=== PATIENT | female | born 1940 | race Caucasian/White ===

== ENCOUNTER 2020-07-16 21:58 | Emergency (ER) | payer MEDICARE, OTHER ==
[~2020-07-16 21:58] MED LIST: ACTOS45 MG PO; ASPIRIN EC81 MG PO; BENZONATATE200 MG PO; COZAAR100 MG PO; DIFLUCAN150 MG PO; FERROUS SULFAT325 M2 PO; HUMULIN R100 UNIT/1 SQ; IPRAT-ALBUT 0.5-3 ML INH; K-DUR TAB 20 M20 MEQ PO; LASIX20 MG PO; LEVAQUIN750 MG PO; LEVEMIR100 UNIT/1 SQ; LOPRESSOR 50 MG50 MG PO; LOPRESSOR50 MG PO; MAG-OX 400 TAB400 MG PO; MAPAP500 M1 PO; METAFOLBIC TAB1 EACH PO; NORVASC 5 MG TAB5 MG PO; OMNICEF 300 MG300 MG PO; POTASSIUM CHLO10 MEQ PO; PRAVACHOL20 MG PO; PRAVASTATIN SOD20 MG PO; TESSALON PERLE100 MG PO; VIBRAMYCIN100 MG PO; VITAMIN B-121000 MCG PO; VITAMIN D50000 UNIT PO
[2020-07-17 00:35] LABS: HEMOGLOBIN 13.5 gm/dl (12.3-15.3); RED BLOOD COUNT 4.29 M/UL (4.00-5.10); WHITE BLOOD COUNT 8.9 K/UL (4.5-11.0)
[2020-07-17 01:00] LABS: BUN/CREATININE RATIO 15 (0-10)
== END 2020-07-17 02:57 | disposition home or self-care (01) ==
LOC: ER1 21:58
PROVIDERS: Emergency Medicine
DX: S80.02XA Contusion of left knee, initial encounter (principal); S80.01XA Contusion of right knee, initial encounter; S70.02XA Contusion of left hip, initial encounter; E11.9 Type 2 diabetes mellitus without complications; I11.9 Hypertensive heart disease without heart failure; W06.XXXA Fall from bed, initial encounter
CPT/HCPCS: 70450; 71045; 72125; 72170; 73560; 80053; 82550; 82553; 84484; 85025; 93005; 99284

== ENCOUNTER 2020-07-18 15:16 | Inpatient (IN) | payer MEDICARE, OTHER ==
[~2020-07-18] VITALS: Ht 162.6 cm; Wt 102.1 kg
[2020-07-18 16:55] LABS: HEMOGLOBIN 13.6 gm/dl (12.3-15.3); RED BLOOD COUNT 4.34 M/UL (4.00-5.10); WHITE BLOOD COUNT 8.2 K/UL (4.5-11.0)
[2020-07-19] MEDS ORDERED: BUMETANIDE1 MG PO (09:07)
[2020-07-19] MEDS ORDERED: VITAMIN D325 MCG PO (11:34)
[2020-07-19] MEDS ORDERED: NOVOLIN 70100 UNIT/1 SQ (21:48)
--- NOTE | 2020-07-22 07:02 | NUR ---
CT WAS ALERTED AT APPROXIMATELY 2300 ON 07/21/20 THAT PT HAD 20 GAUGE IV FOR PE STUDY NEEDING TO BE PERFORMED.
--- NOTE | 2020-07-23 19:19 | NUR ---
Dr. Bangura notified of patients oxygen sats 86-87% on 5L NC. New order to start patient on high flow oxygen. Respiratory therpay notified.
[2020-07-24 04:35] LABS: HEMOGLOBIN 12.3 gm/dl (12.3-15.3); WHITE BLOOD COUNT 14.3 K/UL (4.5-11.0)
[2020-07-26 03:19] LABS: RED BLOOD COUNT 3.94 M/UL (4.00-5.10); WHITE BLOOD COUNT 12.5 K/UL (4.5-11.0)
[2020-07-27 04:04] LABS: HEMOGLOBIN 13.1 gm/dl (12.3-15.3); RED BLOOD COUNT 4.23 M/UL (4.00-5.10); WHITE BLOOD COUNT 11.7 K/UL (4.5-11.0)
--- NOTE | 2020-07-29 02:01 | NUR ---
AT 2135 PATIENT FOUND ON FLOOR IN HER ROOM. SHE WAS LYING ON THE SIDE OF THE BED NEXT TO BATHROOM ON HER RIGHT SIDE. PATIENT ASSISTED BACK TO BED, VSS, PATIENT DENIES ANY PAIN. PATIENT EXAMINED AND FOUND NO INJURY OR EVEN ANY REDNESS. PATIENT ALERT AND ANSWERS MY QUESTIONS. MD TAMALE MAKER AND HS NOTIFIED.
[2020-07-29 03:30] LABS: RED BLOOD COUNT 4.21 M/UL (4.00-5.10)
[2020-07-29 03:31] LABS: WHITE BLOOD COUNT 16.7 K/UL (4.5-11.0)
--- NOTE | 2020-07-29 06:45 | NUR ---
attempted to call daughter to inform her about fall but no answer, tried twice.
[2020-07-30 03:13] LABS: HEMOGLOBIN 12.4 gm/dl (12.3-15.3); RED BLOOD COUNT 4.03 M/UL (4.00-5.10); WHITE BLOOD COUNT 14.3 K/UL (4.5-11.0)
[2020-07-31 04:55] LABS: HEMOGLOBIN 12.5 gm/dl (12.3-15.3); RED BLOOD COUNT 4.26 M/UL (4.00-5.10); WHITE BLOOD COUNT 16.8 K/UL (4.5-11.0)
[2020-07-31 05:08] LABS: BUN/CREATININE RATIO 25 (0-10)
[2020-08-01 03:02] LABS: HEMOGLOBIN 12.3 gm/dl (12.3-15.3); RED BLOOD COUNT 4.21 M/UL (4.00-5.10); WHITE BLOOD COUNT 14.8 K/UL (4.5-11.0)
[2020-08-02 05:28] LABS: HEMOGLOBIN 12.2 gm/dl (12.3-15.3); RED BLOOD COUNT 4.01 M/UL (4.00-5.10); WHITE BLOOD COUNT 11.5 K/UL (4.5-11.0)
[2020-08-02 05:43] LABS: BUN/CREATININE RATIO 23 (0-10)
[2020-08-04 04:14] LABS: HEMOGLOBIN 12.4 gm/dl (12.3-15.3); RED BLOOD COUNT 4.02 M/UL (4.00-5.10); WHITE BLOOD COUNT 9.5 K/UL (4.5-11.0)
[2020-08-04 04:44] LABS: BUN/CREATININE RATIO 18 (0-10)
[2020-08-05 05:50] LABS: RED BLOOD COUNT 4.21 M/UL (4.00-5.10); WHITE BLOOD COUNT 10.4 K/UL (4.5-11.0)
[2020-08-06 04:35] LABS: HEMOGLOBIN 11.4 gm/dl (12.3-15.3); RED BLOOD COUNT 3.69 M/UL (4.00-5.10); WHITE BLOOD COUNT 9.7 K/UL (4.5-11.0)
[2020-08-06] MEDS ORDERED: IPRAT-ALBUT 0.5-3 ML INH (12:39)
[2020-08-06] MEDS ORDERED: ACETAMINOPHEN325 MG PO (12:39)
[2020-08-06] MEDS ORDERED: BUMETANIDE1 MG PO (12:39)
[2020-08-06] MEDS ORDERED: HUMALOG 10100 UNITS/ SC (12:39)
[2020-08-06] MEDS ORDERED: POLYETHYLENE GL17 GM PO (12:39)
[2020-08-06] MEDS ORDERED: AUGMENTIN 875-1 EACH PO (12:40)
--- NOTE | 2020-08-06 14:20 | NUR ---
CASE MGMT NOTIFIED ME THAT WAS UNABLE TO GET PAPERWORK COMPLETED DUE TO UNABLE TO REACH PT'S DAUGHTER BY PHONE AND PT NOT BEING ABLE TO BE AT RECEIVING FACILITY BY 3PM, SO THEREFORE PT WILL HAVE TO STAY HERE UNTIL SUNDAY. DR DARNELL NOTIFIED PER CASE MGMT AND DISCHARGE CANCELLED.
--- NOTE | 2020-08-06 20:45 | NUR ---
Notified daughter that the patient had left to go to rehab
== END 2020-08-06 20:30 | DRG 177 ==
LOC: ER1 15:16 → M/S 18:43 → CDU 18:43 → M/S 21:08
PROVIDERS: Internal Medicine; Internal Medicine Nephrology; Physician Assistant Medical; ADMIT Internal Medicine
PROC: 3E0333Z Introduction of Anti-inflammatory into Peripheral Vein, Percutaneous Approach (ICD-10-PCS; principal; 2020-07-18)
PROC: 8E0ZXY6 Isolation (ICD-10-PCS; 2020-07-18)
PROC: XW13325 Transfusion of Convalescent Plasma (Nonautologous) into Peripheral Vein, Percutaneous Approach, New Technology Group 5 (ICD-10-PCS; 2020-07-19)
PROC: XW033E5 Introduction of Remdesivir Anti-infective into Peripheral Vein, Percutaneous Approach, New Technology Group 5 (ICD-10-PCS; 2020-07-19)
DX: U07.1 COVID-19 (principal); J96.21 Acute and chronic respiratory failure with hypoxia; J12.82 Pneumonia due to coronavirus disease 2019; J69.0 Pneumonitis due to inhalation of food and vomit; G92 Toxic encephalopathy; N17.9 Acute kidney failure, unspecified; I50.32 Chronic diastolic (congestive) heart failure; I44.2 Atrioventricular block, complete; N39.0 Urinary tract infection, site not specified; M84.477A Pathological fracture, right toe(s), initial encounter for fracture; I13.0 Hypertensive heart and chronic kidney disease with heart failure and stage 1 through stage 4 chronic kidney disease, or unspecified chronic kidney disease; T38.0X5A Adverse effect of glucocorticoids and synthetic analogues, initial encounter; N18.30 Chronic kidney disease, stage 3 unspecified; R53.81 Other malaise; M10.9 Gout, unspecified; E11.22 Type 2 diabetes mellitus with diabetic chronic kidney disease; R13.10 Dysphagia, unspecified; R33.9 Retention of urine, unspecified; F29 Unspecified psychosis not due to a substance or known physiological condition; I27.20 Pulmonary hypertension, unspecified; I49.5 Sick sinus syndrome; R41.0 Disorientation, unspecified; F03.90 Unspecified dementia, unspecified severity, without behavioral disturbance, psychotic disturbance, mood disturbance, and anxiety; E11.65 Type 2 diabetes mellitus with hyperglycemia; Z79.4 Long term (current) use of insulin; Z95.0 Presence of cardiac pacemaker; Z79.82 Long term (current) use of aspirin; Z79.01 Long term (current) use of anticoagulants; Z99.81 Dependence on supplemental oxygen; Z88.7 Allergy status to serum and vaccine
CPT/HCPCS: 36415; 36600; 70450; 71045; 71275; 72125; 72170; 73560; 73620; 80048; 80053; 81001; 82140; 82550; 82553; 82803; 82962; 83036; 83605; 83735; 84484; 85025; 85027; 85379; 86140; 86900; 86901; 86927; 87040; 87086; 92526; 92610; 93005; 94640; 94664; 94760; 96374; 97110; 97110-GP-CQ; 97116-GP-CQ; 97162; 97166; 97530; 97530-GP-CQ; 99284; 99285; J0456; J0692; J0696; J1100; J1630; J1650; J2405; J7030; P9047; Q9967; U0002

== ENCOUNTER 2021-02-02 12:06 | Inpatient (IN) | payer MEDICARE, MEDICAID ==
[~2021-02-02] VITALS: Ht 162.6 cm; Wt 83.9 kg
[~2021-02-02 12:06] MED LIST changes: +ACETAMINOPHEN325 MG PO; +AUGMENTIN 875-1 EACH PO; +BUMETANIDE1 MG PO; +HUMALOG 10100 UNITS/ SC; +NOVOLIN 70100 UNIT/1 SQ; +POLYETHYLENE GL17 GM PO; -PRAVACHOL20 MG PO; +VITAMIN D325 MCG PO
[2021-02-02 14:38] LABS: HEMOGLOBIN 14.8 gm/dl (12.3-15.3); RED BLOOD COUNT 4.86 M/UL (4.00-5.10); WHITE BLOOD COUNT 12.9 K/UL (4.5-11.0)
[2021-02-02] MEDS ORDERED: BUMETANIDE1 MG PO (16:09)
[2021-02-02] MEDS ORDERED: ONDANSETRON ODT8 MG PO (16:10)
[2021-02-02] MEDS ORDERED: DONEPEZIL HCL5 MG PO (16:10)
[2021-02-02] MEDS ORDERED: METOPROLOL TAR100 MG PO (16:10)
[2021-02-02] MEDS ORDERED: VITAMIN C500 M4 PO (16:11)
[2021-02-02] MEDS ORDERED: FUROSEMIDE20 MG PO (16:12)
[2021-02-02] MEDS ORDERED: NOVOLIN 70100 UNIT/1 SQ (16:12)
[2021-02-03 07:30] LABS: HEMOGLOBIN 13.1 gm/dl (12.3-15.3); RED BLOOD COUNT 4.45 M/UL (4.00-5.10)
[2021-02-04 06:01] LABS: HEMOGLOBIN 12.6 gm/dl (12.3-15.3); RED BLOOD COUNT 4.2 M/UL (4.00-5.10)
[2021-02-04 06:03] LABS: WHITE BLOOD COUNT 14.8 K/UL (4.5-11.0)
[2021-02-05 06:22] LABS: HEMOGLOBIN 12.1 gm/dl (12.3-15.3); RED BLOOD COUNT 4.05 M/UL (4.00-5.10); WHITE BLOOD COUNT 16.1 K/UL (4.5-11.0)
[2021-02-06 05:57] LABS: HEMOGLOBIN 12.6 gm/dl (12.3-15.3); RED BLOOD COUNT 4.24 M/UL (4.00-5.10); WHITE BLOOD COUNT 16.8 K/UL (4.5-11.0)
[2021-02-07 09:30] LABS: HEMOGLOBIN 12.6 gm/dl (12.3-15.3); RED BLOOD COUNT 4.24 M/UL (4.00-5.10); WHITE BLOOD COUNT 20.1 K/UL (4.5-11.0)
[2021-02-07] MEDS ORDERED: MEDROL DOSEPAK 24 MG PO (13:01)
[2021-02-07] MEDS ORDERED: AUGMENTIN 875-1 EACH PO (13:01)
--- NOTE | 2021-02-07 18:41 | NUR ---
HOSPICE UNABLE TO DELIVER EQUIPMENT TO PT'S HOME UNTIL TOMORROW. NOTIFIED AND DC HELD UNTIL AM
[2021-02-08 07:52] LABS: HEMOGLOBIN 12.9 gm/dl (12.3-15.3); RED BLOOD COUNT 4.45 M/UL (4.00-5.10); WHITE BLOOD COUNT 20.8 K/UL (4.5-11.0)
[2021-02-08 08:55] LABS: BUN/CREATININE RATIO 23 (0-10)
--- NOTE | 2021-02-08 16:29 | NUR ---
MULTIPLE ATTEMPTS MADE WITH NO ANSWER TO CONTACT FAMILY TO SEE IF HOSPICE EQUIPMENT HAS BEEN DELIVERED FOR PT TO DISCHARGE. EVERY NUMBER LISTED ATTEMPTED SEVERAL TIMES OVER THE LAST TWO HOURS WITH NO SUCCESS. CASE MANAGEMENT NOTIFIED.
== END 2021-02-08 20:30 | DRG 871 ==
LOC: ER1 12:06 → CDU 16:24 → MED SURG 4 16:24
PROVIDERS: Emergency Medicine; ADMIT Internal Medicine
DX: A41.9 Sepsis, unspecified organism (principal); E43 Unspecified severe protein-calorie malnutrition; J18.9 Pneumonia, unspecified organism; I13.0 Hypertensive heart and chronic kidney disease with heart failure and stage 1 through stage 4 chronic kidney disease, or unspecified chronic kidney disease; I50.32 Chronic diastolic (congestive) heart failure; E87.2 Acidosis; N17.9 Acute kidney failure, unspecified; I96 Gangrene, not elsewhere classified; E11.52 Type 2 diabetes mellitus with diabetic peripheral angiopathy with gangrene; L03.116 Cellulitis of left lower limb; Z20.822 Contact with and (suspected) exposure to COVID-19; R21 Rash and other nonspecific skin eruption; I25.10 Atherosclerotic heart disease of native coronary artery without angina pectoris; I49.5 Sick sinus syndrome; N18.30 Chronic kidney disease, stage 3 unspecified; N18.9 Chronic kidney disease, unspecified; K52.9 Noninfective gastroenteritis and colitis, unspecified; E11.22 Type 2 diabetes mellitus with diabetic chronic kidney disease; K63.9 Disease of intestine, unspecified; E86.0 Dehydration; L89.621 Pressure ulcer of left heel, stage 1; E78.5 Hyperlipidemia, unspecified; R62.7 Adult failure to thrive; T78.40XA Allergy, unspecified, initial encounter; R53.81 Other malaise; F03.90 Unspecified dementia, unspecified severity, without behavioral disturbance, psychotic disturbance, mood disturbance, and anxiety; R13.10 Dysphagia, unspecified; E11.621 Type 2 diabetes mellitus with foot ulcer; E66.9 Obesity, unspecified; Z95.0 Presence of cardiac pacemaker; Z86.16 Personal history of COVID-19; Z88.8 Allergy status to other drugs, medicaments and biological substances; Z86.73 Personal history of transient ischemic attack (TIA), and cerebral infarction without residual deficits; Z79.899 Other long term (current) drug therapy; Z88.5 Allergy status to narcotic agent; Z91.048 Other nonmedicinal substance allergy status; Z79.4 Long term (current) use of insulin; Z68.30 Body mass index [BMI] 30.0-30.9, adult
CPT/HCPCS: 36415; 51702; 70450; 71045; 73620; 80053; 80202; 81001; 82436; 82550; 82553; 82570; 82962; 83036; 83605; 83690; 83735; 83874; 83880; 84100; 84132; 84133; 84156; 84300; 84439; 84443; 84484; 85025; 85610; 85652; 86140; 87040; 87086; 92526; 92610; 93005; 93926; 96374; 96375; 97162; 97530-GP-CQ; 99285; A6212; C9113; J0692; J0696; J1200; J1335; J1650; J2930; J3370; J3480; J7070; P9047; U0002

== ENCOUNTER → 2021-04-08 | Outpatient (CLI) | payer OTHER ==
[~2021-04-08] MED LIST changes: +DONEPEZIL HCL5 MG PO; +FUROSEMIDE20 MG PO; +MEDROL DOSEPAK 24 MG PO; +METOPROLOL TAR100 MG PO; +ONDANSETRON ODT8 MG PO; +VITAMIN C500 M4 PO
== END ==
LOC: VNA 14:01
DX: R30.0 Dysuria (principal)
CPT/HCPCS: 81001; 87077; 87086; 87186